=== PATIENT | female | born 1960 | race Native Hawaiian/Other Pacific Islander ===

== ENCOUNTER 2016-10-02 00:22 | Inpatient (IN) | payer OTHER ==
[~2016-10-02] VITALS: Ht 157.5 cm; Wt 35.5 kg
[2016-10-02] VITALS (9 sets, daily range): BP systolic 71–102; BP diastolic 35–66; TEMP 97.8–98.7; Ht 157.5 cm; Wt 35.5 kg
[~2016-10-02 00:22] MED LIST: ALBUTEROL0.083 % IN; AZIT200S PO; CELEXA10 MG OR; CELEXA20 MG PO; CYAN100010; FLOVENT HFA44 MCG IN; HYDR12.54; MICROZIDE12.5 MG PO; PREDNISONE5 M1 OR; PROP10TA57 PO; TIOTCAP2 INH; [UNRECOGNIZED DRUG - OTHER] OR
[2016-10-02] MEDS ORDERED: MEGESTROL AC40 MG PO (00:45)
[2016-10-02 02:50] LABS: PLATELET COUNT 83 K/uL (152-353)
[2016-10-02 03:04] LABS: POTASSIUM 2.2 mmol/L (3.6-5.2)
--- NOTE | 2016-10-02 07:50 | NUR ---
RECEIVED REPORT FROM REECE KRISHNAN RN
--- NOTE | 2016-10-02 08:40 | NUR ---
PT CAME TO THE FLOOR AT THIS TIME. NAD NOTED. PT ORIENTED TO THE FLOOR. BRUISING NOTED TO BILATERAL LOWER ARMS. A FEW SORES NOTED TO THE RIGHT LOWER LEG. BRUISING NOTED TO THE L HIP. AND A SMALL PENPOINT OPENED AREA NOTED TO THE OUTSIDE OF THE L OUTER VAGINAL AREA.
[2016-10-03] VITALS (8 sets, daily range): BP systolic 75–90; BP diastolic 44–84; TEMP 97.6–98.6
[2016-10-03 05:58] LABS: POTASSIUM 3.7 mmol/L (3.6-5.2); SODIUM 128 mmol/L (136-145)
[2016-10-03 08:59] LABS: PLATELET COUNT 64 K/uL (152-353)
[2016-10-04 00:05] VITALS: BP 81/49; TEMP 97.7
[2016-10-04 04:00] VITALS: BP 103/79; TEMP 97.7
[2016-10-04 07:29] LABS: PLATELET COUNT 59 K/uL (152-353)
[2016-10-04 07:37] LABS: POTASSIUM 4.1 mmol/L (3.6-5.2); SODIUM 128 mmol/L (136-145)
--- NOTE | 2016-10-04 07:54 | NUR ---
10/04/16 0405 PT HAS ORDER FOR MAGNESIUM IV BUT HAS NOT BEEN GIVEN DUE TO PT GOT 2 UNITS OF BLOOD. CONTACTED CHARGE NURSE CATIA BROWN RN DUE TO ORDER FOR MAGNESIUM IS INCOMPLETE AND DOES NOT HAVE A DOSE. KEVIN STATES TO REPORT THIS TO DAY SHIFT TO GET CLARIFICATION FROM DOCTOR.
[2016-10-04 08:00] VITALS: BP 114/72; TEMP 98.5
--- NOTE | 2016-10-04 08:00 | NUR ---
10/04/16 0630 PT'S IV PUMP KEEPS ALERTING FOR PARTIAL OCCLUSION OF IV SITE TO L AC. PT DENIES ANY PAIN OR OTHER PROBLEMS TO SITE, NO SWELLING OR OTHER S/S NOTED. ATTEMPTED TO FLUSH SITE AND SITE SLIGHTLY HARD TO FLUSH AND NO BLOOD RETURN NOTED, PT DENIES ANY PAIN WHEN FLUSHING SITE. FLUIDS STOPPED AND ANOTHER IV SITE WILL BE OBTAINED. MANDOLIN REPAIRER ATTEMPTED TO START NEW SITE TO R FA BUT SITE BLEW.
--- NOTE | 2016-10-04 08:07 | NUR ---
10/04/16 0635 PT INFORMED THAT UA IS NEEDED AND TO CALL STAFF THE NEXT TIME SHE NEEDS TO URINATE, PT ACKNOWLEDGES UNDERSTANDING.
--- NOTE | 2016-10-04 11:30 | NUR ---
MULTIPLE ATTEMPTS TO RESTART IV DUE TO POSTIONAL IN L AC. UNSUCCESSFUL AT THIS TIME. IV FLUSHED WITHOUT DIFFICULTY. INSTRUCTED PT TO KEEP ARM STRAIGHT. PT V/U
[2016-10-04 12:00] VITALS: BP 115/73; TEMP 97.8
[2016-10-04 16:00] VITALS: BP 157/96; TEMP 98
--- NOTE | 2016-10-04 17:02 | NUR ---
1650-PT C/O BEING SOB. RESP IN TO DO TREATMENT. 1700-PT STATES SOB IS RELIEVED. NAD NOTED. PT SITTING HIGH FOWLERS IN BED
--- NOTE | 2016-10-04 18:15 | NUR ---
1530-PT C/O IV SITE TENDERNESS. WILL ATTEMPT TO CHANGE SITE DUE TO POSITIONAL OCCULSION.
--- NOTE | 2016-10-04 18:22 | NUR ---
IV RESTARTED TO R FA WITH 24G ANGIOCATH PER MONSE CORTES, RN PT TOLERATED WELL
[2016-10-04 20:00] VITALS: BP 98/65; TEMP 97.8
[2016-10-05] VITALS: BP 102/65; TEMP 98.3
[2016-10-05 05:27] LABS: PLATELET COUNT 55 K/uL (152-353); POTASSIUM 4.3 mmol/L (3.6-5.2); SODIUM 127 mmol/L (136-145)
[2016-10-05 05:58] VITALS: BP 114/67; TEMP 98
[2016-10-05 08:00] VITALS: BP 104/74; TEMP 98
[2016-10-05 12:00] VITALS: BP 99/69; TEMP 97.7
--- NOTE | 2016-10-05 15:04 | NUR ---
PT'S 0730 ACCUCHECK RESULTED AT 84, 11:30 ACCUCHECK RESULTED AT 130. NO SS INSULIN COVERAGE GIVEN AT EITHER TIME IT WAS NOT REQUIRED FOR THESE LEVELS.
[2016-10-05 16:00] VITALS: BP 104/72; TEMP 97.8
--- NOTE | 2016-10-05 18:26 | NUR ---
1630: PT'S ACCUCHECK RESULTED AT 109, NO SSI COVERAGE INDICATED AT THIS TIME. PT IN NO MEDICAL DISTRESS NOTED.
[2016-10-05 20:00] VITALS: BP 84/60; TEMP 97.6
[2016-10-06 00:20] VITALS: BP 60/38; TEMP 97.5
[2016-10-06 01:40] LABS: PLATELET COUNT 57 K/uL (152-353)
[2016-10-06 01:59] LABS: POTASSIUM 5.3 mmol/L (3.6-5.2); SODIUM 130 mmol/L (136-145)
[2016-10-06 05:41] VITALS: BP 66/44; TEMP 97.4
--- NOTE | 2016-10-06 05:59 | NUR ---
PT CONTINUES TO REST QUIETLY IN BED WITH EYES CLOSED, RESP RATE 20 AND NONLABORED, BILATERAL EXPIRATORY WHEEZING NOTED, COARSE WET SOUNDS HAVE DECREASED BUT STILL NOTED IN LEFT LUNG FEILDS. 18F TREVIÑO PATENT DRAINING TO BEDSIDE WITH TOTAL OUTPUT OF 150 NOTED, IV LOCK TO R WRIST AND L AC INTACT, 02 AT 2LPM VIA NC, WILL MONITOR, RAILS UP, CALL LIGHT IN REACH, BED IN LOW POSITION, DAUGHTER REMAINS AT BEDSIDE.
--- NOTE | 2016-10-06 06:07 | NUR ---
10/06/[address] CASAREZ NOW AT BEDSIDE ASSESSING PT, RESPIRATORY ALSO AT BEDSIDE WITH TEXTILES AND CLOTHING TEACHER. IV FLUIDS STOPPED AT THIS TIME PER ORDER, IV SITE TO R WRIST NOW A SALINE LOCK.
[2016-10-06 08:00] VITALS: BP 64/49; TEMP 98.2
--- NOTE | 2016-10-06 09:42 | NUR ---
AT 08:09, DR SIM RETURNED PHONE CALL REGARDING PT STATUS AND CONTINUED HYPOTENSION, DR Zambrano REPEATED MANUAL BP VALUE OF 69/44, STATED HE WILL BE ON UNIT SHORTLY MAKING ROUNDS AND TO CONTINUE CLOSELY MONITORING PT. NO MEDICAL DISTRES NOTED AND PT DENIES C/O AT THIS TIME.
--- NOTE | 2016-10-06 09:44 | NUR ---
10/06/16 0400 B/P 78/52, O2 SAT 100% ON 2LPM VIA NC, RESP RATE 22 WITH WET COUGH NOTED, PT IN SLIGHT DISTRESS, TREVIÑO PATENT, IV SITES INTACT, WILL MONITOR CLOSELY, RAILS UP.
--- NOTE | 2016-10-06 09:47 | NUR ---
10/06/16 0250 18F TREVIÑO CATH INSERTED VIA ANSWERING SERVICE OPERATOR, NOTED APPROX 50 ML OF URINE RETURN, URINE IS DARK TEA COLORED, CATH PATENT DRAINING TO BEDSIDE, PT TOLERATED WITH NO PROBLEMS. WILL MONITOR. PT CONTINUES TO HAVE A WET, RATTLING COUGH. MODERATE DISTRESS AND PT REMAINS RESTLESS.
--- NOTE | 2016-10-06 09:53 | NUR ---
10/06/16 0044 BULK TRUCK DRIVER [address] CASRAEZ IN ER ON PHONE ABOUT PT'S CONDITION. ORDER GIVEN FOR: CMP, BNP, MAGNESIUM, PHOSPHORUS, ABG, EKG, AND CHEST X-RAY NOW. STOP CURRENT IV FLUID. T.O. R&V.
--- NOTE | 2016-10-06 10:04 | NUR ---
0230 DR. CASAREZ AT NURSES STATION LOOKING OVER PT'S CURRENT LAB RESULTS. WAITING FOR NEW ORDERS.
--- NOTE | 2016-10-06 10:14 | NUR ---
10/05/162129 PT CONTINUES TO C/O HEADACHE AT TIMES, STATES SHE CAN NOT SLEEP OR GET COMFORTABLE, APPEARS SLIGHTLTY RESTLESS, DAUGHTER AT BEDSIDE STATES HER MOTHER IS NOT ACTING RIGHT AND TOLDER HER DAUGHTER THAT SHE IS SCARED TO STAY THE NIGHT ALONE TONIGHT. PT COUGHING MORE THAN LAST 3 NIGHTS. SKIN CONTINUES TO BE DARKER WITH SLIGHTLY PURPLE/RED TONE TO FACE, NECK, UPPER CHEST. ALSO DARKER TO UPPER ARM AND HANDS A TAXICAB DRIVER DUSKY COLOR. O2 SAT 96% RA. WILL MONITOR CLOSELY, DAUGHTER REMAINS AT BEDSIDE. PT HAS NOT OTHER COMPLAINTS.
--- NOTE | 2016-10-06 10:25 | NUR ---
10/05/16 2240 PT CONTINUES TO BECOME MORE RESTLESS AND FIDGETING WITH COVERS, COUGHING ALOT. NOTIFIED RESPIRATORY THAT PT CONDITION IS DIFFERENT ALONG WITH CHARGE NURSE. WILL GIVE MEDICATION TO HELP WITH ANXIETY/RESTLESSNESS AND MONITOR B/P CLOSELY. MILD DISTRESS NOTED DURING COUGHING SPELL. WILL CONTINUE TO MONITOR CLOSELY.
--- NOTE | 2016-10-06 10:30 | NUR ---
5820 DR. CASAREZ AT BEDSIDE, PT VERY RESTLESS AND KEEPS PULLING OFF CONTINUOUS NEB TREATMENT, RESP DISTRESS STILL NOTED. NEW V.O TO D/C CONTINUOUS NEB, ALBUTEROL NEB TREATMENTS Q 2 HOURS. R&V.
--- NOTE | 2016-10-06 10:34 | NUR ---
0015 PT APPEARS TO BE HAVING MILD TO MODERATE RESP DISTRESS, AUDIBLE EXPIRATORY WHEEZING AND RATTLING NOTED, EXPIRATORY WHEEZING AND RHONCHI NOTED BILATERALLY ON AUSCULTATION, WET COUGH NOTED, RESP RATE 24. PT RESTLESS, B/P LOW. CHARGE NURSE NOTIFIED. ALSO NOTIFIED RESPIRATORY.
--- NOTE | 2016-10-06 10:41 | NUR ---
[address] CASAREZ ABOUT ORDER FOR NITRO PASTE AT 0241 DUE TO PT HAVING LOW B/P. STATES TO GIVE TO HELP WITH CARDIAC OUTPUT AND HER B/P.
--- NOTE | 2016-10-06 10:46 | NUR ---
PT'S ACCUCHECK RESULTED AT 90, NO SSI COVERAGE INDICATED AT THIS TIME.
--- NOTE | 2016-10-06 10:50 | NUR ---
SCHEDULED AM DOSE OF PROPANOLOL HELD DURING ADMIN OF AM MEDS DUE TO PT'S HYPOTENSION, DR SIM NOTIFIED AND AWARE. CATHETER CARE PERFORMED TO PERINEAL AREA AT THIS TIME, PT TOLERATED WELL.
[2016-10-06 12:10] VITALS: BP 90/52; TEMP 97.5
[2016-10-06 16:00] VITALS: BP 80/58; TEMP 97.6
--- NOTE | 2016-10-06 16:01 | NUR ---
DR SIM NOTIFIED OF PT STATUS AND CONDITION, MADE ROUNDS AT THIS TIME. NO NEW ORDERS RECEIVED AT THIS TIME.
[2016-10-06 20:00] VITALS: BP 90/59; TEMP 98.9
--- NOTE | 2016-10-06 20:15 | NUR ---
PT ASLEEP, DIFFICULT TO AROUSE, LUNG SOUNDS REVEAL CRACKLES THROUGHOUT; HOWEVER, GREATER ON RIGHT. PT IS FRAIL, REQUIRES ASSISTANCE WITH ALL ADLS.
--- NOTE | 2016-10-06 20:32 | NUR ---
GIVEN NEB TX VIA MEDICATION THATWAS IN CONTINOUS NEB
[2016-10-07] VITALS: BP 84/60; TEMP 97.8
[2016-10-07 04:00] VITALS: BP 91/60; TEMP 97.6
[2016-10-07 06:46] LABS: POTASSIUM 4.8 mmol/L (3.6-5.2)
[2016-10-07 07:06] LABS: PLATELET COUNT 31 K/uL (152-353)
[2016-10-07 08:00] VITALS: BP 88/58; TEMP 98.1
[2016-10-07 12:28] VITALS: BP 96/65; TEMP 98.1
[2016-10-07 15:53] VITALS: BP 102/66; TEMP 98.4
[2016-10-07 20:00] VITALS: BP 108/71; BP 177/79; TEMP 97.6; TEMP 99
--- NOTE | 2016-10-07 20:20 | NUR ---
GAVE PT A PRN TX USING MEDICATION IN CONT NEBULIZER
[2016-10-08] VITALS: BP 117/77; TEMP 97.8
--- NOTE | 2016-10-08 02:25 | NUR ---
10/08/16 0040 MULTIPLE STAFF MEMBERS ATTEMPTED TO START IV X 4 ATTEMPS [address] NO SUCESS. [address] Radha JIMENEZ CONTACTED IN THE ER. NEW ORDERS: LASIX 20MG PO X1 DOSE NOW, SOLUMEDROL 125MG IM X1 DOSE NOW, ATIVAN 0.5MG PO X1 DOSE NOW, MAY LEAVE IV OUT. T.0. R&V.
[2016-10-08 04:00] VITALS: BP 132/82; TEMP 97.4
[2016-10-08 06:40] LABS: PLATELET COUNT 55 K/uL (152-353)
[2016-10-08 07:04] LABS: POTASSIUM 4.4 mmol/L (3.6-5.2); SODIUM 131 mmol/L (136-145)
[2016-10-08 08:00] VITALS: BP 135/84; TEMP 98.9
--- NOTE | 2016-10-08 10:39 | NUR ---
0900- PT DROWSY PT AWAKES TO TOUCH BUT FALLS BACK TO SLEEP. PT LEANING TO LEFT SIDE. ASSISTED PT TO SIT UP AND TAKE MEDICATIONS. PT TOOK SIPS OF JUICE WITH MED WITHOUT DIFFICULTY. HAND HUMAN RESOURCES PARTNER[S STRONG. GENERALIZED WEAKNESS NOTED. FAUGHTER AT BS STATES SHE HAS BEEN THIS WAY ALL WEEKEND. SCRIBE NOTIFIED TO INFORM DR SIM UPON ARRIVAL. UNSUCCESSFUL IV ATTEMPTS PER EXECUTIVE DIRECTOR SHELTERED WORKSHOP. WILL ATTEMPT AND INFORM DR SIM.
--- NOTE | 2016-10-08 11:51 | NUR ---
22G TO L FA X 1 ATTEMPT PER ABBI ISAEL.
[2016-10-08 12:17] VITALS: BP 130/84; TEMP 98.3
[2016-10-08 16:13] VITALS: BP 124/78; TEMP 98
--- NOTE | 2016-10-08 18:04 | NUR ---
1230-PT UP TO CHAIR AT THIS TIME. FAMILY AT BS. 1300-CALLED TO PT'S ROOM. PT TREVIÑO LAYING IN FLOOR. PT STATES SHE DOESN'T REMEMBER PULLING OUT. [place] INTACT. NOTIFIED AND ORDERS TO LEAVE OUT AT THIS TIME. NAD NOTED. 1800-PT CLEANED AND BATHED AT THIS TIME. LINENS CHANGED. PT TOLERATED WELL. DAUGHTER AT BS.
[2016-10-08 20:00] VITALS: BP 125/80; TEMP 97.6
[2016-10-09 03:54] VITALS: BP 133/69; TEMP 98.2
[2016-10-09 08:00] VITALS: BP 141/90; TEMP 98.6
[2016-10-09 09:29] LABS: PLATELET COUNT 77 K/uL (152-353)
[2016-10-09 10:36] LABS: SODIUM 133 mmol/L (136-145)
[2016-10-09 12:00] VITALS: BP 157/97; TEMP 98.6
--- NOTE | 2016-10-09 14:59 | NUR ---
DC INSTRUCTIONS GIVEN TO PT AND FAMILY. FAMILY VERBALIZES UNDERSTANDING. CASE MANAGEMENT IN TO TALK WITH FAMILY ABOUT PT/OT AT HOME. IV DC'D WITH CANNULA INTACT. SITE CARE PROVIDED.
--- NOTE | 2016-10-09 15:11 | NUR ---
PT LEFT VIA WC AT THIS TIME WITH DAUGHTER AND FAMILY. NAD NOTED.
== END 2016-10-09 15:07 | disposition home health service (06) | DRG 811 ==
LOC: ED 00:22 → MED/SURG 03:15
PROVIDERS: Emergency Medicine
PROC: 30233N1 Transfusion of Nonautologous Red Blood Cells into Peripheral Vein, Percutaneous Approach (ICD-10-PCS; principal; 2016-10-03)
PROC: 30233N1 Transfusion of Nonautologous Red Blood Cells into Peripheral Vein, Percutaneous Approach (ICD-10-PCS; 2016-10-04)
DX: D64.89 Other specified anemias (principal); I50.31 Acute diastolic (congestive) heart failure; E87.1 Hypo-osmolality and hyponatremia; E87.6 Hypokalemia; A08.8 Other specified intestinal infections; K29.80 Duodenitis without bleeding; E83.42 Hypomagnesemia; I95.89 Other hypotension; J44.9 Chronic obstructive pulmonary disease, unspecified; N18.3 Chronic kidney disease, stage 3 (moderate); D35.01 Benign neoplasm of right adrenal gland
CPT/HCPCS: 36415; 36416; 36430; 36600; 80048; 80053; 81000; 82550; 82553; 82570; 82607; 82728; 82805; 82948; 83540; 83550; 83735; 83880; 83935; 84100; 84300; 84466; 84484; 85007; 85027; 86850; 86900; 86901; 86922; 87045; 87205; 87328; 87329; 87493; 87798; 87804; 87899; 93005; 94640; 94664; 94760; 96361; 96365; 96372; 96375; 99284; J1650; J1940; J2060; J2270; J2405; J2930; J3411; J3475; J3490; P9016; Q9963

== ENCOUNTER 2016-10-17 18:45 | Inpatient (IN) | payer OTHER ==
[~2016-10-17] VITALS: Ht 157.5 cm; Wt 33.3 kg
[~2016-10-17 18:45] MED LIST changes: +MEGESTROL AC40 MG PO
[2016-10-17 21:17] LABS: SODIUM 133 mmol/L (136-145)
[2016-10-17 21:50] LABS: PLATELET COUNT 109 K/uL (152-353)
[2016-10-17 21:59] LABS: POTASSIUM 2.3 mmol/L (3.6-5.2)
[2016-10-17 23:06] VITALS: BP 88/47; TEMP 97.4; Ht 157.5 cm; Wt 33.3 kg
[2016-10-18] VITALS: BP 115/67; TEMP 98.5
[2016-10-18 04:00] VITALS: BP 120/70; TEMP 98
[2016-10-18 05:22] LABS: SODIUM 135 mmol/L (136-145)
[2016-10-18 06:06] LABS: POTASSIUM 2.2 mmol/L (3.6-5.2)
[2016-10-18 08:00] VITALS: BP 154/80; TEMP 98
[2016-10-18 12:00] VITALS: BP 142/76; TEMP 98
[2016-10-18 16:00] VITALS: BP 144/72; TEMP 97.6
[2016-10-18 17:27] LABS: PLATELET COUNT 105 K/uL (152-353)
[2016-10-18 17:30] LABS: POTASSIUM 3.9 mmol/L (3.6-5.2); SODIUM 134 mmol/L (136-145)
[2016-10-18 20:00] VITALS: BP 126/64; TEMP 98.8
[2016-10-19] VITALS: BP 148/86; TEMP 98
[2016-10-19 04:00] VITALS: BP 160/95; TEMP 97.6
[2016-10-19 04:53] LABS: PLATELET COUNT 112 K/uL (152-353)
[2016-10-19 05:15] LABS: POTASSIUM 3.4 mmol/L (3.6-5.2); SODIUM 134 mmol/L (136-145)
[2016-10-19 08:09] VITALS: BP 137/82; TEMP 98.3
[2016-10-19 12:00] VITALS: BP 104/68; TEMP 98.1
== END 2016-10-19 16:00 | disposition home or self-care (01) | DRG 641 ==
LOC: MED/SURG 18:45
PROVIDERS: Student in an Organized Health Care Education/Training Program; ADMIT Nurse Practitioner
DX: E87.6 Hypokalemia (principal); E83.42 Hypomagnesemia; F10.20 Alcohol dependence, uncomplicated; J44.9 Chronic obstructive pulmonary disease, unspecified; R30.0 Dysuria; Z72.0 Tobacco use; A08.8 Other specified intestinal infections; R10.11 Right upper quadrant pain; R53.1 Weakness; R11.2 Nausea with vomiting, unspecified; M15.8 Other polyosteoarthritis; N39.0 Urinary tract infection, site not specified; B96.1 Klebsiella pneumoniae [K. pneumoniae] as the cause of diseases classified elsewhere
CPT/HCPCS: 36415; 36591; 80048; 80053; 81000; 83735; 84134; 85027; 87077; 87086; 87088; 87186; 96365; 96367; J1644; J3480; J3490

== ENCOUNTER 2016-11-07 13:19 | Day surgery (SDC) | payer OTHER | END 2016-11-07 14:35 | disposition home or self-care (01) | LOC: OR 13:19 | PROC: 05H333Z Insertion of Infusion Device into Right Innominate Vein, Percutaneous Approach (ICD-10-PCS; principal; 2016-11-07) | DX: E44.0 Moderate protein-calorie malnutrition (principal) | CPT/HCPCS: 36571; C1751 ==

== ENCOUNTER 2016-11-08 10:57 | Outpatient (CLI) | payer OTHER ==
[2016-11-08 11:25] LABS: PLATELET COUNT 195 K/uL (152-353)
[2016-11-08 11:34] LABS: POTASSIUM 3.1 mmol/L (3.6-5.2); SODIUM 135 mmol/L (136-145)
== END 2016-11-08 19:14 | disposition home or self-care (01) ==
LOC: LAB 10:57
PROVIDERS: Nurse Practitioner
DX: R62.7 Adult failure to thrive (principal); B96.81 Helicobacter pylori [H. pylori] as the cause of diseases classified elsewhere; R79.89 Other specified abnormal findings of blood chemistry
CPT/HCPCS: 80053; 83735; 84100; 84134; 84478; 85027

== ENCOUNTER 2016-11-12 11:35 | Outpatient (CLI) | payer OTHER ==
[2016-11-12 11:48] LABS: PLATELET COUNT 176 K/uL (152-353)
[2016-11-12 12:55] LABS: POTASSIUM 3.5 mmol/L (3.6-5.2); SODIUM 135 mmol/L (136-145)
== END 2016-11-12 20:14 | disposition home or self-care (01) ==
LOC: LAB 11:35
PROVIDERS: Student in an Organized Health Care Education/Training Program
DX: R62.7 Adult failure to thrive (principal); R79.89 Other specified abnormal findings of blood chemistry
CPT/HCPCS: 80053; 83735; 84100; 84134; 84478; 85007; 85027

== ENCOUNTER 2016-11-15 10:16 | Outpatient (CLI) | payer OTHER ==
[2016-11-15 11:59] LABS: PLATELET COUNT 174 K/uL (152-353)
[2016-11-15 11:59] LABS: POTASSIUM 3.9 mmol/L (3.6-5.2); SODIUM 130 mmol/L (136-145)
== END 2016-11-15 19:22 | disposition home or self-care (01) ==
LOC: LAB 10:16
PROVIDERS: Student in an Organized Health Care Education/Training Program
DX: R62.7 Adult failure to thrive (principal); R79.89 Other specified abnormal findings of blood chemistry
CPT/HCPCS: 80053; 83735; 84100; 84478; 85027

== ENCOUNTER 2016-11-19 11:12 | Outpatient (CLI) | payer OTHER ==
[2016-11-19 11:47] LABS: PLATELET COUNT 221 K/uL (152-353)
[2016-11-19 12:01] LABS: SODIUM 131 mmol/L (136-145)
== END 2016-11-20 02:01 | disposition home or self-care (01) ==
LOC: LAB 11:12
PROVIDERS: Student in an Organized Health Care Education/Training Program
DX: R62.7 Adult failure to thrive (principal); R53.1 Weakness; R79.89 Other specified abnormal findings of blood chemistry
CPT/HCPCS: 80053; 83735; 84100; 84134; 84478; 85027

== ENCOUNTER 2016-11-28 11:52 | Inpatient (IN) | payer OTHER ==
[~2016-11-28] VITALS: Ht 157.5 cm; Wt 39.2 kg
[2016-11-28 13:56] LABS: PLATELET COUNT 242 K/uL (152-353)
[2016-11-28 14:05] LABS: POTASSIUM 3.9 mmol/L (3.6-5.2); SODIUM 130 mmol/L (136-145)
[2016-11-28 14:14] VITALS: BP 151/80; TEMP 97.6; Ht 157.5 cm; Wt 39.2 kg
[2016-11-28 16:00] VITALS: BP 151/80; TEMP 97.6
[2016-11-28] MEDS ORDERED: TRAZODONE300 MG PO (17:29)
[2016-11-28 20:16] VITALS: BP 78/49; TEMP 98.6
[2016-11-29 00:06] VITALS: BP 88/52; TEMP 99
[2016-11-29 04:00] VITALS: BP 79/52; TEMP 99.4
[2016-11-29 05:14] LABS: PLATELET COUNT 187 K/uL (152-353)
[2016-11-29 05:18] LABS: POTASSIUM 3.4 mmol/L (3.6-5.2); SODIUM 128 mmol/L (136-145)
[2016-11-29 07:53] VITALS: BP 86/55; TEMP 99.4
[2016-11-29 12:00] VITALS: BP 90/88; TEMP 99
[2016-11-29 16:00] VITALS: BP 103/54; TEMP 98.8
[2016-11-29 20:00] VITALS: BP 125/59; TEMP 98.9
[2016-11-30] VITALS: BP 96/61; TEMP 99.13
[2016-11-30 04:00] VITALS: BP 113/57; TEMP 97.6
[2016-11-30 05:15] LABS: PLATELET COUNT 186 K/uL (152-353)
[2016-11-30 05:34] LABS: POTASSIUM 2.8 mmol/L (3.6-5.2); SODIUM 132 mmol/L (136-145)
[2016-11-30 08:00] VITALS: BP 114/67; TEMP 97.9
[2016-11-30 12:00] VITALS: BP 115/66; TEMP 97.8
[2016-11-30 16:00] VITALS: BP 144/85; TEMP 98.5
[2016-11-30 20:00] VITALS: BP 143/85; TEMP 98.3
[2016-12-01] VITALS: BP 129/81; TEMP 98.9
[2016-12-01 01:29] LABS: POTASSIUM 3.7 mmol/L (3.6-5.2); SODIUM 131 mmol/L (136-145)
[2016-12-01 04:00] VITALS: BP 104/66; TEMP 98.8
[2016-12-01 05:19] LABS: PLATELET COUNT 220 K/uL (152-353)
[2016-12-01 05:45] LABS: POTASSIUM 3.3 mmol/L (3.6-5.2); SODIUM 132 mmol/L (136-145)
[2016-12-01 08:00] VITALS: BP 100/59; TEMP 98.3
[2016-12-01 12:00] VITALS: BP 108/66; TEMP 98.3
== END 2016-12-01 15:20 | disposition home or self-care (01) | DRG 871 ==
LOC: MED/SURG 11:52
PROVIDERS: Emergency Medicine; ADMIT Nurse Practitioner
PROC: 30233N1 Transfusion of Nonautologous Red Blood Cells into Peripheral Vein, Percutaneous Approach (ICD-10-PCS; principal; 2016-11-29)
DX: A41.52 Sepsis due to Pseudomonas (principal); J15.6 Pneumonia due to other Gram-negative bacteria; Y95 Nosocomial condition; J44.0 Chronic obstructive pulmonary disease with (acute) lower respiratory infection; J20.9 Acute bronchitis, unspecified; R62.7 Adult failure to thrive; N18.9 Chronic kidney disease, unspecified; I10 Essential (primary) hypertension; D64.89 Other specified anemias
CPT/HCPCS: 36415; 36430; 36600; 80048; 80053; 80200; 82805; 82948; 83735; 83880; 84100; 84134; 84478; 85014; 85018; 85027; 86850; 86900; 86901; 86922; 87040; 87070; 87077; 87186; 87205; 87804; 93005; 94640; 94664; 94760; 96360; 96361; 96367; J1940; J1956; J2405; J2543; J3260; J3411; J3475; J3480; J3490; P9016

== ENCOUNTER 2016-12-03 13:25 | Outpatient (CLI) | payer OTHER ==
[~2016-12-03 13:25] MED LIST changes: +TRAZODONE300 MG PO
[2016-12-03 13:39] LABS: PLATELET COUNT 230 K/uL (152-353)
[2016-12-03 14:05] LABS: POTASSIUM 2.7 mmol/L (3.6-5.2); SODIUM 138 mmol/L (136-145)
== END 2016-12-03 19:54 | disposition home or self-care (01) ==
LOC: LAB 13:25
PROVIDERS: Student in an Organized Health Care Education/Training Program
DX: J44.9 Chronic obstructive pulmonary disease, unspecified (principal); R26.89 Other abnormalities of gait and mobility; M62.81 Muscle weakness (generalized); R79.89 Other specified abnormal findings of blood chemistry
CPT/HCPCS: 80053; 83735; 84100; 84134; 84478; 85027

== ENCOUNTER 2016-12-10 10:45 | Outpatient (CLI) | payer OTHER ==
[2016-12-10 11:31] LABS: PLATELET COUNT 197 K/uL (152-353); SODIUM 132 mmol/L (136-145)
== END 2016-12-10 19:21 | disposition home or self-care (01) ==
LOC: LAB 10:45
PROVIDERS: Student in an Organized Health Care Education/Training Program
DX: R62.7 Adult failure to thrive (principal); R79.89 Other specified abnormal findings of blood chemistry
CPT/HCPCS: 80053; 83735; 84100; 84134; 84478; 85027

== ENCOUNTER 2016-12-17 10:42 | Outpatient (CLI) | payer OTHER ==
[2016-12-17 10:57] LABS: PLATELET COUNT 236 K/uL (152-353)
[2016-12-17 11:19] LABS: SODIUM 127 mmol/L (136-145)
[2016-12-17] MEDS ORDERED: CYPROHEPTADINE HCL PO (12:26)
== END 2016-12-17 19:26 | disposition home or self-care (01) ==
LOC: LAB 10:42
PROVIDERS: Student in an Organized Health Care Education/Training Program
DX: M62.81 Muscle weakness (generalized) (principal); R62.7 Adult failure to thrive; I10 Essential (primary) hypertension
CPT/HCPCS: 80053; 83735; 84100; 84134; 84478; 85027

== ENCOUNTER 2016-12-17 12:11 | Emergency (ER) | payer OTHER ==
[~2016-12-17] VITALS: Ht 152.4 cm; Wt 33.1 kg
[2016-12-17 12:20] VITALS: TEMP 98.4
[2016-12-17] MEDS ORDERED: CYPROHEPTADINE HCL PO (12:26)
[2016-12-17 14:02] LABS: POTASSIUM 2.8 mmol/L (3.6-5.2); SODIUM 127 mmol/L (136-145)
[2016-12-17 16:00] VITALS: BP 93/61
== END 2016-12-17 16:00 | disposition home or self-care (01) ==
LOC: ED 12:11
PROVIDERS: Emergency Medicine
DX: J18.9 Pneumonia, unspecified organism (principal); E87.1 Hypo-osmolality and hyponatremia; E87.6 Hypokalemia; E16.1 Other hypoglycemia; M62.81 Muscle weakness (generalized); R62.7 Adult failure to thrive; I10 Essential (primary) hypertension
CPT/HCPCS: 36415; 80048; 80053; 83735; 84100; 84134; 84478; 85027; 87040; 87804; 96361; 96365; 99284; J0456; J1642

== ENCOUNTER 2016-12-18 13:00 | Day surgery (SDC) | payer OTHER ==
[~2016-12-18 13:00] MED LIST changes: +CYPROHEPTADINE HCL PO
== END 2016-12-18 15:59 | disposition home or self-care (01) ==
LOC: OR 13:00
PROC: 06PYX3Z Removal of Infusion Device from Lower Vein, External Approach (ICD-10-PCS; principal; 2016-12-18)
PROC: 05HC33Z Insertion of Infusion Device into Left Basilic Vein, Percutaneous Approach (ICD-10-PCS; 2016-12-18)
DX: E46 Unspecified protein-calorie malnutrition (principal)
CPT/HCPCS: 36571; 87070; C1751

== ENCOUNTER 2016-12-20 11:27 | Outpatient (CLI) | payer OTHER ==
[2016-12-20 11:45] LABS: PLATELET COUNT 201 K/uL (152-353)
[2016-12-20 13:29] LABS: POTASSIUM 4.4 mmol/L (3.6-5.2); SODIUM 135 mmol/L (136-145)
== END 2016-12-20 19:49 | disposition home or self-care (01) ==
LOC: LAB 11:27
PROVIDERS: Student in an Organized Health Care Education/Training Program
DX: M62.81 Muscle weakness (generalized) (principal); R62.7 Adult failure to thrive; R79.89 Other specified abnormal findings of blood chemistry
CPT/HCPCS: 80053; 83735; 84100; 84134; 84478; 85027

== ENCOUNTER 2016-12-24 14:22 | Outpatient (CLI) | payer OTHER ==
[2016-12-24 14:47] LABS: PLATELET COUNT 234 K/uL (152-353)
[2016-12-24 15:03] LABS: SODIUM 128 mmol/L (136-145)
== END 2016-12-24 15:22 | disposition home or self-care (01) ==
LOC: LAB 14:22
PROVIDERS: Student in an Organized Health Care Education/Training Program
DX: M62.81 Muscle weakness (generalized) (principal); R62.7 Adult failure to thrive; R79.89 Other specified abnormal findings of blood chemistry
CPT/HCPCS: 80053; 83735; 84100; 84134; 84478; 85027

== ENCOUNTER 2016-12-24 16:59 | Emergency (ER) | payer OTHER ==
[~2016-12-24] VITALS: Ht 157.5 cm; Wt 29.9 kg
[2016-12-24 18:38] LABS: PLATELET COUNT 220 K/uL (152-353)
[2016-12-24 21:06] VITALS: BP 110/73; TEMP 97.5
== END 2016-12-24 21:09 | disposition home or self-care (01) ==
LOC: ED 16:59
PROVIDERS: Specialist
DX: J44.9 Chronic obstructive pulmonary disease, unspecified (principal); J40 Bronchitis, not specified as acute or chronic; M62.81 Muscle weakness (generalized); R62.7 Adult failure to thrive; R79.89 Other specified abnormal findings of blood chemistry
CPT/HCPCS: 36415; 80053; 81000; 83605; 83735; 84100; 84134; 84478; 85027; 87040; 96374; 99284; J3370

== ENCOUNTER 2016-12-31 13:53 | Outpatient (CLI) | payer OTHER ==
[2016-12-31 14:05] LABS: PLATELET COUNT 223 K/uL (152-353)
[2016-12-31 15:48] LABS: POTASSIUM 5.2 mmol/L (3.6-5.2); SODIUM 133 mmol/L (136-145)
== END 2016-12-31 19:20 | disposition home or self-care (01) ==
LOC: LAB 13:53
PROVIDERS: Student in an Organized Health Care Education/Training Program
DX: M62.81 Muscle weakness (generalized) (principal); R62.7 Adult failure to thrive; R74.8 Abnormal levels of other serum enzymes
CPT/HCPCS: 80053; 83735; 84100; 84134; 84478; 85027

== ENCOUNTER 2017-01-07 10:43 | Outpatient (CLI) | payer OTHER ==
[2017-01-07 11:27] LABS: PLATELET COUNT 241 K/uL (152-353)
[2017-01-07 11:44] LABS: POTASSIUM 4.2 mmol/L (3.6-5.2); SODIUM 133 mmol/L (136-145)
== END 2017-01-07 19:24 | disposition home or self-care (01) ==
LOC: LAB 10:43
PROVIDERS: Student in an Organized Health Care Education/Training Program
DX: K29.70 Gastritis, unspecified, without bleeding (principal); R11.2 Nausea with vomiting, unspecified; E43 Unspecified severe protein-calorie malnutrition
CPT/HCPCS: 80053; 82607; 82728; 83540; 83550; 83735; 83918; 84100; 84134; 84478; 85027

== ENCOUNTER 2017-01-14 12:41 | Outpatient (CLI) | payer OTHER ==
[2017-01-14 13:28] LABS: PLATELET COUNT 268 K/uL (152-353)
[2017-01-14 13:36] LABS: POTASSIUM 4.2 mmol/L (3.6-5.2); SODIUM 130 mmol/L (136-145)
== END 2017-01-14 19:28 | disposition home or self-care (01) ==
LOC: LAB 12:41
PROVIDERS: Student in an Organized Health Care Education/Training Program
DX: R62.7 Adult failure to thrive (principal); M62.81 Muscle weakness (generalized); R79.89 Other specified abnormal findings of blood chemistry
CPT/HCPCS: 80053; 83735; 84100; 84478; 85027

== ENCOUNTER 2017-01-21 12:22 | Outpatient (CLI) | payer OTHER ==
[2017-01-21 13:29] LABS: SODIUM 135 mmol/L (136-145)
[2017-01-21 13:35] LABS: PLATELET COUNT 235 K/uL (152-353)
== END 2017-01-21 20:01 | disposition home or self-care (01) ==
LOC: LAB 12:22
PROVIDERS: Student in an Organized Health Care Education/Training Program
DX: R62.7 Adult failure to thrive (principal); Z79.899 Other long term (current) drug therapy
CPT/HCPCS: 80053; 83735; 84100; 84478; 85027

== ENCOUNTER 2017-01-28 12:18 | Outpatient (CLI) | payer OTHER ==
[2017-01-28 12:59] LABS: PLATELET COUNT 286 K/uL (152-353)
[2017-01-28 13:05] LABS: POTASSIUM 3.9 mmol/L (3.6-5.2); SODIUM 131 mmol/L (136-145)
== END 2017-01-28 19:22 | disposition home or self-care (01) ==
LOC: LAB 12:18
PROVIDERS: Student in an Organized Health Care Education/Training Program
DX: R62.7 Adult failure to thrive (principal); M62.81 Muscle weakness (generalized); E78.6 Lipoprotein deficiency
CPT/HCPCS: 80053; 83735; 84100; 84134; 84478; 85027

== ENCOUNTER 2017-02-04 13:50 | Outpatient (CLI) | payer OTHER ==
[2017-02-04 15:18] LABS: PLATELET COUNT 305 K/uL (152-353)
[2017-02-04 15:26] LABS: POTASSIUM 4.7 mmol/L (3.6-5.2); SODIUM 133 mmol/L (136-145)
== END 2017-02-04 19:24 | disposition home or self-care (01) ==
LOC: LAB 13:50
PROVIDERS: Student in an Organized Health Care Education/Training Program
DX: M62.81 Muscle weakness (generalized) (principal); R62.7 Adult failure to thrive; I10 Essential (primary) hypertension
CPT/HCPCS: 80053; 83735; 84100; 84478; 85027

== ENCOUNTER 2017-02-11 13:04 | Outpatient (CLI) | payer OTHER ==
[2017-02-11 13:18] LABS: PLATELET COUNT 215 K/uL (152-353)
[2017-02-11 13:28] LABS: POTASSIUM 4.3 mmol/L (3.6-5.2); SODIUM 129 mmol/L (136-145)
== END 2017-02-11 14:00 | disposition home or self-care (01) ==
LOC: LAB 13:04
PROVIDERS: Student in an Organized Health Care Education/Training Program
DX: R62.7 Adult failure to thrive (principal); J44.9 Chronic obstructive pulmonary disease, unspecified; I10 Essential (primary) hypertension
CPT/HCPCS: 80053; 83735; 84100; 84478; 85027

== ENCOUNTER 2017-02-19 10:27 | Outpatient (CLI) | payer OTHER ==
[2017-02-19 10:41] LABS: PLATELET COUNT 224 K/uL (152-353)
[2017-02-19 10:54] LABS: POTASSIUM 4.4 mmol/L (3.6-5.2); SODIUM 135 mmol/L (136-145)
== END 2017-02-19 19:30 | disposition home or self-care (01) ==
LOC: LAB 10:27
PROVIDERS: Student in an Organized Health Care Education/Training Program
DX: J44.1 Chronic obstructive pulmonary disease with (acute) exacerbation (principal); R62.7 Adult failure to thrive; R74.8 Abnormal levels of other serum enzymes
CPT/HCPCS: 80053; 83735; 83918; 84100; 84478; 85027

== ENCOUNTER 2017-02-25 11:23 | Outpatient (CLI) | payer OTHER ==
[2017-02-25 12:35] LABS: POTASSIUM 4.3 mmol/L (3.6-5.2); SODIUM 136 mmol/L (136-145)
[2017-02-25 12:51] LABS: PLATELET COUNT 224 K/uL (152-353)
== END 2017-02-25 19:49 | disposition home or self-care (01) ==
LOC: LAB 11:23
PROVIDERS: Student in an Organized Health Care Education/Training Program
DX: R62.7 Adult failure to thrive (principal); I50.31 Acute diastolic (congestive) heart failure
CPT/HCPCS: 80053; 83735; 84100; 84134; 84478; 85027

== ENCOUNTER 2017-03-04 10:27 | Outpatient (CLI) | payer OTHER ==
[2017-03-04 10:57] LABS: PLATELET COUNT 253 K/uL (152-353)
[2017-03-04 11:28] LABS: POTASSIUM 3.8 mmol/L (3.6-5.2); SODIUM 133 mmol/L (136-145)
== END 2017-03-04 11:30 | disposition home or self-care (01) ==
LOC: LAB 10:27
PROVIDERS: Student in an Organized Health Care Education/Training Program
DX: J44.1 Chronic obstructive pulmonary disease with (acute) exacerbation (principal); M62.81 Muscle weakness (generalized); R62.7 Adult failure to thrive; R79.89 Other specified abnormal findings of blood chemistry
CPT/HCPCS: 36415; 80053; 83735; 84100; 84478; 85027

== ENCOUNTER 2017-03-11 10:11 | Outpatient (CLI) | payer OTHER ==
[2017-03-11 11:14] LABS: PLATELET COUNT 239 K/uL (152-353)
[2017-03-11 11:22] LABS: POTASSIUM 4.4 mmol/L (3.6-5.2); SODIUM 137 mmol/L (136-145)
== END 2017-03-11 19:11 | disposition home or self-care (01) ==
LOC: LAB 10:11
PROVIDERS: Student in an Organized Health Care Education/Training Program
DX: K29.70 Gastritis, unspecified, without bleeding (principal); R11.2 Nausea with vomiting, unspecified; E43 Unspecified severe protein-calorie malnutrition
CPT/HCPCS: 80053; 83735; 83918; 84100; 84134; 84478; 85027

== ENCOUNTER 2017-03-25 11:30 | Outpatient (CLI) | payer OTHER ==
[2017-03-25 12:08] LABS: POTASSIUM 4.2 mmol/L (3.6-5.2); SODIUM 135 mmol/L (136-145)
[2017-03-25 12:35] LABS: PLATELET COUNT 238 K/uL (152-353)
== END 2017-03-25 12:30 | disposition home or self-care (01) ==
LOC: LAB 11:30
PROVIDERS: Student in an Organized Health Care Education/Training Program
DX: J44.1 Chronic obstructive pulmonary disease with (acute) exacerbation (principal); R62.7 Adult failure to thrive; J45.909 Unspecified asthma, uncomplicated; R11.2 Nausea with vomiting, unspecified; E43 Unspecified severe protein-calorie malnutrition
CPT/HCPCS: 80053; 83735; 83918; 84100; 84134; 84478; 85027

== ENCOUNTER 2017-04-08 10:47 | Outpatient (CLI) | payer OTHER ==
[2017-04-08 11:35] LABS: PLATELET COUNT 229 K/uL (152-353); POTASSIUM 3.8 mmol/L (3.6-5.2); SODIUM 135 mmol/L (136-145)
== END 2017-04-08 11:50 | disposition home or self-care (01) ==
LOC: LAB 10:47
PROVIDERS: Student in an Organized Health Care Education/Training Program
DX: J44.1 Chronic obstructive pulmonary disease with (acute) exacerbation (principal); R62.7 Adult failure to thrive; J45.909 Unspecified asthma, uncomplicated; R74.8 Abnormal levels of other serum enzymes
CPT/HCPCS: 80053; 83735; 84100; 84478; 85027

== ENCOUNTER 2017-04-22 12:05 | Outpatient (CLI) | payer OTHER ==
[2017-04-22 12:51] LABS: PLATELET COUNT 206 K/uL (152-353)
[2017-04-22 13:15] LABS: SODIUM 136 mmol/L (136-145)
== END 2017-04-22 13:05 | disposition home or self-care (01) ==
LOC: LAB 12:05
PROVIDERS: Student in an Organized Health Care Education/Training Program
DX: Z76.0 Encounter for issue of repeat prescription (principal); R74.8 Abnormal levels of other serum enzymes
CPT/HCPCS: 80053; 83735; 84100; 84478; 85027